=== PATIENT | male | born 1965 | race Caucasian/White ===

== ENCOUNTER 2020-10-16 18:03 | Emergency (ER) | payer OTHER ==
[~2020-10-16 18:03] MED LIST: CRESTOR10 MG PO; ENDOCET 5-3251 EACH PO; LISINOPRIL-HCT1 EAC1 PO; XARELTO10 MG PO
[2020-10-16] MEDS ORDERED: DICLOFENAC SODI50 MG PO (21:21)
== END 2020-10-16 21:36 | disposition home or self-care (01) ==
LOC: FER 18:03
DX: M25.511 Pain in right shoulder (principal); F17.210 Nicotine dependence, cigarettes, uncomplicated; I10 Essential (primary) hypertension; J44.9 Chronic obstructive pulmonary disease, unspecified
CPT/HCPCS: 73030; 96372; J1885